=== PATIENT | male | born 1990 | race African-American/Black ===

== ENCOUNTER 2016-06-19 01:16 | Emergency (ER) | payer MEDICAID ==
[~2016-06-19] VITALS: Ht 180.3 cm; Wt 77.3 kg
[~2016-06-19 01:16] MED LIST: CIPRO 500MG TA500 MG PO; FLEXERIL 1010 MG/TAB PO; NO HOME MEDICATIONS; NORCO 325 MG-51 TAB PO; ULTRAM50 MG PO; UNABLE; ZOFRAN 4MG T4 MG/TAB PO; ZOVIRAX800 MG PO
[2016-06-19 01:17] VITALS: BP 143/98; TEMP 98
[2016-06-19] MEDS ORDERED: AMOXICILLIN 50500 MG PO (01:56)
[2016-06-19] MEDS ORDERED: NORCO 325 MG-51 TAB PO (01:56)
[2016-06-19 01:57] VITALS: PULSE 78
== END 2016-06-19 02:02 | disposition home or self-care (01) ==
LOC: COL.ER 01:16
DX: K08.89 Other specified disorders of teeth and supporting structures (principal)
CPT/HCPCS: J1885

== ENCOUNTER → 2016-07-04 | Outpatient (CLI) | payer MEDICAID ==
[~2016-07-04] MED LIST changes: +AMOXICILLIN 50500 MG PO
== END ==
LOC: COL.RAD 14:00
DX: N20.0 Calculus of kidney (principal); Z87.442 Personal history of urinary calculi